=== PATIENT | male | born 1985 | race Caucasian/White ===

== ENCOUNTER 2016-10-05 21:21 | Emergency (ER) | payer BC ==
[2016-10-05 21:36] VITALS: BP 131/89
[2016-10-05] MEDS ORDERED: Ketorolac 30 MG/ML SDV IVPUSH ONE (22:20)
[2016-10-05] MEDS ORDERED: Sodium Chloride 0.9% 10 ML Syringe FLUSH PRN (22:20)
[2016-10-05] MEDS ORDERED: Sodium Chloride 0.9% 1,000 ML IV SCH (22:30)
--- NOTE | 2016-10-05 22:46 | EDM.PDOC ---
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 Noticed some nausea after work this morning. Had a couple of sharp stabs of pain in his lower abdomen starting about 6 PM. While playing softball in the evening noticed some increasing pain in the right lower quadrant while he was out in the field. Pain suddenly intensified while he swung at bat. He was unable to keep playing. He broke out in a sweat with the pain. Pain is aggravated by movement especially turning and twisting, walking, taking a deep breath or laughing.. If he stays still it is a little better. Still has mild nausea. No vomiting No diarrhea No history of similar pain He's had lithotripsy a number of years ago and then he passed fragments and small stones as well. He's always had pain in the back from his kidney stones and it helped immensely different than this pain. Apart from his lithotripsy no abdominal surgery No recent fever or infection No analgesics taken abdominal pain Pain Score (Numeric/FACES): 7 - Related Data Allergies Allergy/AdvReac Type Severity Reaction Status Date / Time No Known Allergies Allergy Verified 10/05/16 21:36 Home Meds: Home Meds NK [No Known Home Meds] 10/05/16 [History] Past Medical History Genitourinary History: Reports: Renal Calculus - Infectious Disease History Infectious Disease History: Reports: Chicken Pox - Past Surgical History Male Surgical History: Reports: Kidney Stone Extraction, Lithotripsy (ES[facility]) Social & Family History - Tobacco Use Smoking Status *Q: Current Every Day Smoker Years of Tobacco use: 15 Packs/Tins Daily: 2 - Caffeine Use Caffeine Use: Reports: Soda - Recreational Drug Use Recreational Drug Use: No ED ROS GENERAL - Review of Systems Review Of Systems: See Below Constitutional: Reports: Diaphoresis (Earlier), Other (Last meal was in the afternoon). Denies: Fever, Chills, Decreased Appetite HEENT: Reports: No Symptoms Respiratory: Reports: No Symptoms Cardiovascular: Reports: No Symptoms Endocrine: Reports: No Symptoms GI/Abdominal: Reports: Abdominal Pain (Right lower quadrant), Nausea. Denies: Diarrhea, Vomiting : Reports: No Symptoms Musculoskeletal: Reports: No Symptoms Skin: Reports: No Symptoms Psychiatric: Reports: No Symptoms Hematologic/Lymphatic: Reports: No Symptoms Immunologic: Reports: No Symptoms ED EXAM, GENERAL - Physical Exam Exam: See Below Exam Limited By: No Limitations General Appearance: Alert, Moderate Distress, Other (Looks uncomfortable, color normal, vital signs normal) Eye Exam: Bilateral Eye: Normal Inspection Ears: Normal External Exam, Normal Canal, Hearing Grossly Normal, Normal TMs Nose: Normal Inspection, Normal Mucosa Throat/Mouth: Normal Inspection, Normal Oropharynx, Normal Voice Head: Atraumatic, Normocephalic Neck: Normal Inspection, Supple Respiratory/Chest: No Respiratory Distress, Lungs Clear, Normal Breath Sounds, No Accessory Muscle Use Cardiovascular: Normal Peripheral Pulses, Regular Rate, Rhythm GI/Abdominal: Normal Bowel Sounds, Soft, No Organomegaly, No Distention, Tender (Rather than the right lower quadrant its more to the right upper quadrant almost below the rib cage at the anterior axillary line). No: Guarding, Rigid, Rebound, Mass (Male) Exam: No Hernia, Normal Inspection Back Exam: Normal Inspection Extremities: Normal Inspection Neurological: Alert, Normal Cognition, No Motor/Sensory Deficits Psychiatric: Normal Affect, Normal Mood Skin Exam: Warm, Dry, Intact, Normal Color, No Rash Lymphatic: No Adenopathy Course - Vital Signs Last Recorded V/S: Last Vital Signs Temp 35.9 C 10/05/16 21:34 Pulse 85 10/05/16 21:34 Resp 16 10/05/16 21:34 BP 131/89 10/05/16 21:34 Pulse Ox 98 10/05/16 21:34 - Orders/Labs/Meds Orders: Active Orders 24 hr Category Date Time Status Peripheral IV Care [RC] . DIRECTED Care 10/05/16 22:20 Active Abdomen Pelvis w Cont [CT] Stat Exams 10/05/16 23:16 Taken Sodium Chloride 0.9% [Normal Saline] 1,000 ml Med 10/05/16 22:30 Active IV ASDIRECTED Sodium Chloride 0.9% [Saline Flush] Med 10/05/16 22:20 Active 10 ml FLUSH ASDIRECTED PRN Peripheral IV Insertion Adult [OM.PC] Routine Oth 10/05/16 22:19 Ordered Medication Orders Sodium Chloride (Normal Saline) 1,000 mls @ 250 mls/hr IV ASDIRECTED ESTRELLITA Last Admin: 10/05/16 22:36 Dose: 250 mls/hr Sodium Chloride (Saline Flush) 10 ml FLUSH ASDIRECTED PRN PRN Reason: Keep Vein Open Last Admin: 10/05/16 22:40 Dose: 10 ml Labs: Laboratory Tests 10/05/16 10/05/16 10/05/16 Range/Units 22:30 22:30 22:55 WBC 8.0 (4.5-11.0) K/uL RBC 5.57 (4.30-5.90) M/uL Hgb 15.8 H (12.0-15.0) g/dL Hct 47.8 (40.0-54.0) % MCV 86 (80-98) fL MCH 28 (27-31) pg MCHC 33 (32-36) % Plt Count 282 (150-400) K/uL Sodium 143 (140-148) mmol/L Potassium 4.2 (3.6-5.2) mmol/L Chloride 106 (100-108) mmol/L Carbon Dioxide 28 (21-32) mmol/L Anion Gap 9.3 (5.0-14.0) mmol/L BUN 7 (7-18) mg/dL Creatinine 1.0 (0.8-1.3) mg/dL Est Cr Clr Drug Dosing 110.51 mL/min Estimated GFR (MDRD) > 60 (>60) Glucose 84 (74-106) mg/dL Calcium 8.6 (8.5-10.1) mg/dL Total Bilirubin 0.8 (0.2-1.0) mg/dL AST 25 (15-37) U/L ALT 29 (12-78) U/L Alkaline Phosphatase 93 (46-116) U/L Total Protein 7.4 (6.4-8.2) g/dL Albumin 3.3 L (3.4-5.0) g/dL Globulin 4.1 H (2.3-3.5) g/dL Albumin/Globulin Ratio 0.8 L (1.2-2.2) Lipase 168 (73-393) U/L Urine Color Yellow Urine Appearance Clear Urine pH 7.0 (4.5-8.0) Ur Specific [place] 1.010 (1.008-1.030) Urine Protein Negative (NEGATIVE) mg/dL Urine Glucose (UA) Normal (NEGATIVE) mg/dL Urine Ketones Negative (NEGATIVE) mg/dL Urine Occult Blood Negative (NEGATIVE) Urine Nitrite Negative (NEGAITVE) Urine Bilirubin Negative (NEGATIVE) Urine Urobilinogen Normal (NORMAL) mg/dL Ur Leukocyte Esterase Negative (NEGATIVE) Urine RBC 0-5 (0-5) Urine WBC 0-5 (0-5) Ur Epithelial Cells Not seen Amorphous Sediment Not seen Urine Bacteria Not seen Urine Mucus Not seen Meds: Medications Generic Name Dose Route Start Last Admin Trade Name Freq PRN Reason Stop Dose Admin Sodium Chloride 1,000 mls @ 250 mls/hr 10/05/16 22:30 10/05/16 22:36 Normal Saline IV 250 mls/hr ASDIRECTED ESTRELLITA Administration Sodium Chloride 10 ml 10/05/16 22:20 10/05/16 22:40 Saline Flush FLUSH 10 ml ASDIRECTED PRN Administration Keep Vein Open Discontinued Medications Generic Name Dose Route Start Last Admin Trade Name Freq PRN Reason Stop Dose Admin Sodium Chloride 75 mls @ 3.4 mls/sec 10/05/16 23:24 10/05/16 23:35 Normal Saline IV 10/05/16 23:25 3.4 mls/sec ASDIRECTED STA Administration Iopamidol 119 ml 10/05/16 23:24 10/05/16 23:34 Isovue-300 (61%) IV 10/05/16 23:25 150 ml . DIRECTED STA Administration Ketorolac Tromethamine 30 mg 10/05/16 22:20 10/05/16 22:36 Toradol IVPUSH 10/05/16 22:21 30 mg ONETIME ONE Administration - Re-Assessments/Exams Free Text/Narrative Re-Assessment/Exam: 10/05/16 22:48 31-year-old male with history of kidney stones presents with new onset right upper quadrant right flank pain associated with some nausea, became suddenly much worse while swinging a bat a softball. Location the pain is more suggestive of renal or gallbladder problem. There is family history of gallstones but not kidney stones POC ultrasound, unable to visualize gallbladder, no evidence of fluid in the abdomen Intravenous saline, Toradol 30 mg IV 10/05/16 22:59 Pain is a little better at this time but still aerated by movement WBC is normal Patient declined further analgesics at this time 10/05/16 23:17 Hepatic profile, lipase, urinalysis are normal CT scan abdomen pelvis with IV contrast ordered 10/06/16 00:09 CT scan negative for acute process that would explain his pain, he does have right kidney stones but no obstruction of bowel were daily and appendix is normal Followup as below Departure - Departure Time of Disposition: 00:10 Disposition: Home, Self-Care 01 Condition: good Clinical Impression: Right sided abdominal pain - Discharge Information Instructions: Abdominal Pain, Adult, [id number] Forms: ED Department Discharge, Return to Work/School Form Additional Instructions: Please get rechecked by your physician or clinic if you're still having pain in a week Take acetaminophen or ibuprofen as needed for pain Get rechecked more promptly if you have repeated vomiting, fever, painful urination, severe pain and, or other new symptoms - My Orders Last 24 Hours: My Active Orders 10/05/16 22:19 Peripheral IV Insertion Adult [OM.PC] Routine 10/05/16 22:20 Peripheral IV Care [RC] . DIRECTED Sodium Chloride 0.9% [Saline Flush] 10 ml FLUSH ASDIRECTED PRN 10/05/16 22:30 Sodium Chloride 0.9% [Normal Saline] 1,000 ml IV ASDIRECTED 10/05/16 23:16 Abdomen Pelvis w Cont [CT] Stat - Assessment/Plan Last 24 Hours: My Active Orders 10/05/16 22:19 Peripheral IV Insertion Adult [OM.PC] Routine 10/05/16 22:20 Peripheral IV Care [RC] . DIRECTED Sodium Chloride 0.9% [Saline Flush] 10 ml FLUSH ASDIRECTED PRN 10/05/16 22:30 Sodium Chloride 0.9% [Normal Saline] 1,000 ml IV ASDIRECTED 10/05/16 23:16 Abdomen Pelvis w Cont [CT] Stat
[2016-10-05] MEDS ORDERED: Iopamidol 612 MG/ML 150 ML Bottle IV STA (23:24)
[2016-10-05] MEDS ORDERED: Sodium Chloride 0.9% 75 ML IV STA (23:24)
== END 2016-10-06 00:24 | disposition home or self-care (01) ==
LOC: JP.ED 21:21
DX: R10.31 Right lower quadrant pain (principal); F17.210 Nicotine dependence, cigarettes, uncomplicated; Z98.890 Other specified postprocedural states; Z87.442 Personal history of urinary calculi
CPT/HCPCS: 36415; 74177; 80053; 81001; 83690; 85027; 96374; 99284; J1885; J7030; J7040; J7050

== ENCOUNTER 2021-01-29 16:57 | Emergency (ER) | payer BC ==
[2021-01-29 19:03] VITALS: BP 136/98; PULSE 86
[2021-01-29] MEDS ORDERED: HYDROmorphone 1 MG/ML Syringe IVPUSH ONE (19:18)
[2021-01-29] MEDS ORDERED: Ondansetron 4 MG/2 ML SDV IVPUSH ONE (19:18)
--- NOTE | 2021-01-29 19:25 | EDM.PDOC ---
ED HPI GENERAL MEDICAL PROBLEM - General Chief Complaint: Gastrointestinal Problem Stated Complaint: DIARRHEA AND STOMACH CRAMPS 3 DAYS Time Seen by Provider: 01/29/21 18:20 Source of Information: Reports: Patient History Limitations: Reports: No Limitations - History of Present Illness INITIAL COMMENTS - FREE TEXT/NARRATIVE: chief complaint - abdominal pain This is a 35 year old male presents to ER with and 2month old infant. He reports has been sick for 3 days. Abdominal pain and cramping, last ate yesterday was a piece of toast, watery diarrhea, fever, chills, nausea and vomiting. no other family members are ill Covid vaccinated x 2 injections Onset: Gradual Onset Date: 01/27/21 Duration: Day(s): (three), Getting Worse Location: Reports: Abdomen Quality: Reports: Sharp, Other (abdominal pain with cramps) Improves with: Reports: None Worsens with: Reports: Eating (unable to eat for the past two days) Context: Reports: Other (acute abdominal pain) Associated Symptoms: Reports: Cough, Fever/Chills, Loss of Appetite, Malaise, Nausea/Vomiting - Related Data Allergies Allergy/AdvReac Type Severity Reaction Status Date / Time No Known Allergies Allergy Verified 01/29/21 18:54 Home Meds: Home Meds NK [No Known Home Meds] 10/05/16 [History] Past Medical History Genitourinary History: Reports: Renal Calculus - Infectious Disease History Infectious Disease History: Reports: Chicken Pox - Past Surgical History Male Surgical History: Reports: Kidney Stone Extraction, Lithotripsy (ES[facility]) Social & Family History - Tobacco Use Years of Tobacco use: 20 Packs/Tins Daily: 1 - Caffeine Use Caffeine Use: Reports: Soda - Living Situation & Occupation Living situation: Reports: (lives with and 4 children) ED ROS GENERAL - Review of Systems Review Of Systems: See Below Constitutional: Reports: Fever, Chills, Fatigue, Decreased Appetite (unable to eat two day- tired to eat toast today- emesis) HEENT: Reports: No Symptoms Respiratory: Reports: Cough Cardiovascular: Reports: No Symptoms Endocrine: Reports: No Symptoms GI/Abdominal: Reports: Abdominal Pain, Diarrhea (multi watery stools), Decreased Appetite, Nausea, Vomiting : Reports: No Symptoms Musculoskeletal: Reports: No Symptoms Skin: Reports: No Symptoms Neurological: Reports: No Symptoms Psychiatric: Reports: No Symptoms Hematologic/Lymphatic: Reports: No Symptoms Immunologic: Reports: No Symptoms ED EXAM, GI/ABD - Physical Exam Exam: See Below Exam Limited By: No Limitations General Appearance: Alert, WD/WN, Moderate Distress (appears ill, pale, unable to lay flat due to pain in right lower abdomen) Eyes: Bilateral: Normal Appearance Ears: Normal External Exam, Normal Canal, Hearing Grossly Normal, Normal TMs Nose: Normal Inspection, Normal Mucosa, No Blood Throat/Mouth: Normal Inspection, Normal Lips, Normal Teeth, Normal Gums, Normal Oropharynx, Normal Voice, No Airway Compromise Head: Atraumatic, Normocephalic Neck: Normal Inspection, Supple, Non-Tender, Full Range of Motion Respiratory/Chest: No Respiratory Distress, Lungs Clear, Normal Breath Sounds, No Accessory Muscle Use, Chest Non-Tender Cardiovascular: Normal Peripheral Pulses, Regular Rate, Rhythm, No Edema, No Gallop, No JVD, No Murmur, No Rub GI/Abdominal Exam: Distended, Guarding (right lower abdomen), Tender, Abnormal Bowel Sounds (hypoactive to absent). No: No Distention (abdomen bloated/distention noted) (Male) Exam: Deferred. No: Inguinal Lymphadenopathy Rectal (Males) Exam: Deferred Back Exam: Normal Inspection, Full Range of Motion, NT Extremities: Normal Inspection, Normal Range of Motion, Non-Tender, Normal Capillary Refill, No Pedal Edema Neurological: Alert, Oriented, CN II-XII Intact, Normal Cognition, Normal Gait, Normal Reflexes, No Motor/Sensory Deficits Psychiatric: Normal Affect, Normal Mood Skin Exam: Warm, Dry, Intact, Normal Color, No Rash Lymphatic: No Adenopathy Course - Vital Signs Last Recorded V/S: Last Vital Signs Temp 97.9 F 01/29/21 18:59 Pulse 86 01/29/21 18:59 Resp 14 01/29/21 18:59 BP 136/98 H 01/29/21 18:59 Pulse Ox 97 01/29/21 18:59 - Orders/Labs/Meds Orders: Active Orders 24 hr Category Date Time Status UA W/MICROSCOPIC [URIN] Urgent Lab 01/29/21 19:18 Ordered Labs: Laboratory Tests 01/29/21 01/29/21 01/29/21 Range/Units 18:54 19:30 19:30 WBC 7.3 (4.5-11.0) K/uL RBC 5.95 H (4.30-5.90) M/uL Hgb 17.0 H (12.0-15.0) g/dL Hct 49.9 (40.0-54.0) % MCV 84 (80-98) fL MCH 29 (27-31) pg MCHC 34 (32-36) % Plt Count 240 (150-400) K/uL Neut % (Auto) 70.5 H (36-66) % Lymph % (Auto) 17.3 L (24-44) % [place] % (Auto) 10.5 H (2-6) % Eos % (Auto) 1.0 L (2-4) % Baso % (Auto) 0.7 (0-1) % Sodium 134 L (140-148) mmol/L Potassium 3.5 L (3.6-5.2) mmol/L Chloride 100 (100-108) mmol/L Carbon Dioxide 26 (21-32) mmol/L Anion Gap 11.5 (5.0-14.0) mmol/L BUN 11 D (7-18) mg/dL Creatinine 1.1 (0.8-1.3) mg/dL Est Cr Clr Drug Dosing 99.83 mL/min Estimated GFR (MDRD) > 60 (>60) Glucose 88 (74-106) mg/dL Calcium 8.7 (8.5-10.1) mg/dL Magnesium 1.9 (1.8-2.4) mg/dL Total Bilirubin 0.6 (0.2-1.0) mg/dL AST 16 (15-37) U/L ALT 19 (12-78) U/L Alkaline Phosphatase 91 (46-116) U/L Total Protein 7.5 (6.4-8.2) g/dL Albumin 3.8 (3.4-5.0) g/dL Globulin 3.7 H (2.3-3.5) g/dL Albumin/Globulin Ratio 1.0 L (1.2-2.2) Amylase (25-115) U/L Lipase (73-393) U/L SARS CoV-2 RNA Rapid MELISSA Negative 01/29/21 Range/Units 19:30 WBC (4.5-11.0) K/uL RBC (4.30-5.90) M/uL Hgb (12.0-15.0) g/dL Hct (40.0-54.0) % MCV (80-98) fL MCH (27-31) pg MCHC (32-36) % Plt Count (150-400) K/uL Neut % (Auto) (36-66) % Lymph % (Auto) (24-44) % [place] % (Auto) (2-6) % Eos % (Auto) (2-4) % Baso % (Auto) (0-1) % Sodium (140-148) mmol/L Potassium (3.6-5.2) mmol/L Chloride (100-108) mmol/L Carbon Dioxide (21-32) mmol/L Anion Gap (5.0-14.0) mmol/L BUN (7-18) mg/dL Creatinine (0.8-1.3) mg/dL Est Cr Clr Drug Dosing mL/min Estimated GFR (MDRD) (>60) Glucose (74-106) mg/dL Calcium (8.5-10.1) mg/dL Magnesium (1.8-2.4) mg/dL Total Bilirubin (0.2-1.0) mg/dL AST (15-37) U/L ALT (12-78) U/L Alkaline Phosphatase (46-116) U/L Total Protein (6.4-8.2) g/dL Albumin (3.4-5.0) g/dL Globulin (2.3-3.5) g/dL Albumin/Globulin Ratio (1.2-2.2) Amylase 43 (25-115) U/L Lipase 117 (73-393) U/L SARS CoV-2 RNA Rapid MELISSA Meds: Medications Discontinued Medications Generic Name Dose Route Start Last Admin Trade Name Freq PRN Reason Stop Dose Admin Hydromorphone HCl 1 mg 01/29/21 19:18 01/29/21 21:05 Hydromorphone 1 Mg/Ml Syringe IVPUSH 01/29/21 19:19 1 mg ONETIME ONE Administration Sodium Chloride 1,000 mls @ 999 mls/hr 01/29/21 19:30 01/29/21 21:05 Normal Saline IV 999 mls/hr ASDIRECTED ESTRELLITA Administration Sodium Chloride 80 mls @ 3 mls/sec 01/29/21 20:00 01/29/21 20:17 Normal Saline IV 3 mls/sec ASDIRECTED ESTRELLITA Administration Iopamidol 127 ml 01/29/21 20:00 01/29/21 20:17 Iopamidol 612 Mg/Ml 150 Ml Bottle IV 126 ml . DIRECTED ESTRELLITA Administration Methylprednisolone Sodium Succinate 125 mg 01/29/21 21:28 01/29/21 21:49 Methylprednisolone Sodium Succinate 125 Mg/2 Ml Sdv IVPUSH 01/29/21 21:29 125 mg ONETIME ONE Administration Ondansetron HCl 4 mg 01/29/21 19:18 01/29/21 21:05 Ondansetron 4 Mg/2 Ml Sdv IVPUSH 01/29/21 19:19 4 mg ONETIME ONE Administration - Re-Assessments/Exams Free Text/Narrative Re-Assessment/Exam: 01/29/21 19:25 discussed with MrSheba and Mrs. Cornelius will need to rule out acute abdomen vs viral -IV fluids, IV medications for pain and nausea -labs CBC, CMP, UA, LIPASE, AMYLASE, URINE WITH MICRO, COVID TEST -Imaging- CT abdomen-pelvis without contrast agree with plan of care 01/29/21 22:34 CT abdomen pelvis show normal appendix,liver, gallbladder. does show inflammation of ileum, no obstruction given a copy of report to Mr. Cornelius -he is feeling better after medications -will discharge to home with plans to follow up in Primary Care for colonscopy, medications for home ordered. -he agrees with plan of care will follow up with Dr. Babatunde rose. Departure - Departure Time of Disposition: 22:00 Disposition: Home, Self-Care 01 Condition: Good Clinical Impression: Abdominal pain - Discharge Information *PRESCRIPTION DRUG MONITORING PROGRAM REVIEWED*: Not Applicable *COPY OF PRESCRIPTION DRUG MONITORING REPORT IN PATIENT [facility]: Not Applicable Instructions: Abdominal Pain, Adult, [id number] Referrals: PCP,None [Primary Care Provider] - Forms: ED Department Discharge, ED Return to Work/School Form Care Plan Goals: Abdominal Pain -CT scan of abdomen-pelvis given copy for home record -advise to have colonoscopy to evaluate for disease -soft diet- avoid spicy foods -medication for inflammation of gut - Medrol dose pack as directed -medication for nausea- zofran 4 mg every 8 hours as needed for nausea -medication for pain - use Tylenol or Motrin. for more intense pain - can use Hydrocodone 5-325mg one every6 to 8 hrs as needed -follow up with Dr. Fine for recheck Return to the ER for any increased pain, fever, chills, nausea, vomiting or not improved Sepsis Event Note (ED) - Evaluation Sepsis Screening Result: No Definite Risk - Focused Exam Vital Signs: Vital Signs Temp Pulse Resp BP Pulse Ox 01/29/21 18:59 97.9 F 86 14 136/98 H 97 - Problem List & Annotations (1) Abdominal pain SNOMED Code(s): 27039986 Code(s): R10.9 - UNSPECIFIED ABDOMINAL PAIN Status: Acute - Problem List Review Problem List Initiated/Reviewed/Updated: Yes - My Orders Last 24 Hours: My Active Orders 01/29/21 19:18 UA W/MICROSCOPIC [URIN] Urgent - Assessment/Plan Last 24 Hours: My Active Orders 01/29/21 19:18 UA W/MICROSCOPIC [URIN] Urgent Plan: Abdominal Pain -CT scan of abdomen-pelvis given copy for home record -advise to have colonoscopy to evaluate for disease -soft diet- avoid spicy foods -medication for inflammation of gut - Medrol dose pack as directed -medication for nausea- zofran 4 mg every 8 hours as needed for nausea -medication for pain - use Tylenol or Motrin. for more intense pain - can use Hydrocodone 5-325mg one every6 to 8 hrs as needed -follow up with Dr. Fine for recheck Return to the ER for any increased pain, fever, chills, nausea, vomiting or not improved
[2021-01-29] MEDS ORDERED: Sodium Chloride 0.9% 1,000 ML IV SCH (19:30)
[2021-01-29] MEDS ORDERED: Iopamidol 612 MG/ML 150 ML Bottle IV SCH (20:00)
[2021-01-29] MEDS ORDERED: Sodium Chloride 0.9% 80 ML IV SCH (20:00)
--- NOTE | 2021-01-29 21:18 | CRLCT ---
For Patients: As a result of the Century Cures Act, medical imaging exams and procedure reports are released immediately into your electronic medical record. You may view this report before your referring provider. If you have questions, please contact your health care provider. INDICATION: Right lower quadrant abdominal pain. COMPARISON: 10/05/2016 TECHNIQUE: CT examination of the abdomen and pelvis was performed with the uneventful intravenous administration of 126 cc of Isovue-300 while 3 mm thick axial sections were obtained from the lung bases through the pubic symphysis. Oral contrast was not administered. Please note that all CT scans at this facility use dose modulation, iterative reconstruction, and/or weight-based dosing when appropriate to reduce radiation dose to as low as reasonably achievable. FINDINGS: In the abdomen, the liver, spleen, pancreas, and adrenals are normal in appearance. Again seen is a nonobstructive 3 millimeter calculus in the lower pole of the right kidney. There is no sign of any additional renal or ureteral calculi. There is no sign of hydronephrosis or hydroureter. The kidneys are otherwise normal in appearance. The gallbladder is normal in appearance. The abdominal aorta is normal in caliber with no sign of dilatation. There is no sign of retroperitoneal mass or adenopathy. The stomach, loops of small bowel, and colon in the abdomen are normal in appearance. In the pelvis, the appendix is normal in appearance with no sign of inflammatory process. There is new moderate mucosal thickening of the distal ileum, without any associated fistula or abscess. There is new mild free fluid in the pelvis which is probably ascites related to the ileal inflammation. The findings raise the possibility of Crohn`s disease. There is no sign of any obstruction or ileus of this small bowel or the rest of the small bowel in the pelvis. The sigmoid colon and rectum are normal in appearance. The prostate is normal in appearance. The urinary bladder is normal in appearance. The previously seen mild thickening of the wall of the urinary bladder is no longer evident. There is no sign of pelvic or inguinal mass or adenopathy. There is no sign of free air or free fluid in the abdomen. There is no sign of free air or extraluminal air in the pelvis. The lung bases are clear. The osseous structures are normal in appearance for the patient`s age. IMPRESSION: CT of the pelvis shows new moderate mucosal thickening of the distal ileum, suspicious for Crohn`s disease. Small amount of free fluid in the pelvis, probably ascites related to the obstruction. Nothing seen that would suggest abscess or perforation. CT of the abdomen shows no change in a nonobstructive 3 millimeter calculus in the lower pole of the right kidney. Please note that all CT scans at this facility use dose modulation, iterative reconstruction, and/or weight-based dosing when appropriate to reduce radiation dose to as low as reasonably achievable. Dictated by Pankaj Chamorro MD @ 01/29/2021 9:16:27 PM (Electronically Signed)
[2021-01-29] MEDS ORDERED: methylPREDNISolone Sodium Succinate 125 MG/2 ML SDV IVPUSH ONE (21:28)
== END 2021-01-29 22:03 | disposition home or self-care (01) ==
LOC: JP.ED 16:57
DX: R10.31 Right lower quadrant pain (principal); Z72.0 Tobacco use; Z20.822 Contact with and (suspected) exposure to COVID-19; Z87.442 Personal history of urinary calculi
CPT/HCPCS: 36415; 74177; 80053; 82150; 83690; 83735; 85025; 87635; 96374; 96375; 99284; J1170; J2405; J2930; J7030; Q9967; U0002

== ENCOUNTER 2021-05-20 11:12 | Emergency (ER) | payer BC ==
--- NOTE | 2021-05-20 11:40 | EDM.PDOC ---
ED HPI GENERAL MEDICAL PROBLEM - General Chief Complaint: Chest Pain Stated Complaint: CHEST PRESSURE AND THEN SWEATS Time Seen by Provider: 05/20/21 11:20 Source of Information: Reports: Patient History Limitations: Reports: No Limitations - History of Present Illness INITIAL COMMENTS - FREE TEXT/NARRATIVE: 35-year-old male, usually healthy, presents with 2 days of intermittent chest pressure followed by diaphoresis. It happens several times a day, activity does not matter in fact he has had several episodes while sleeping at night. He gets a tightness in his chest that lasts a few seconds, this is followed by diaphoresis and then it goes away. Equivocal shortness of breath during the episode but they are so brief that he does not feel like he is struggling to breathe. The tightness only last for 10 to 15 seconds. He otherwise has no symptoms, he is very active and normally does not have problems with activity. He did get his first 2 Covid vaccinations earlier this year, he has not been boosted. No fevers or chills, no abdominal symptoms, no reflux, nausea or vomiting, peripheral edema or rashes. His last episode was 1/2-hour before coming into the hospital, he now feels okay. Onset: Sudden Duration: Day(s): (Symptoms waxing and waning for the past 2 days, symptoms only last 10 to 15 seconds) Location: Reports: Chest Associated Symptoms: Reports: Diaphoresis, Malaise, Shortness of Breath Chest Pain Score (Numeric/FACES): 7 - Related Data Allergies Allergy/AdvReac Type Severity Reaction Status Date / Time No Known Allergies Allergy Verified 05/20/21 11:25 Home Meds: Home Meds NK [No Known Home Meds] 10/05/16 [History] Past Medical History Genitourinary History: Reports: Renal Calculus - Infectious Disease History Infectious Disease History: Reports: Chicken Pox - Past Surgical History Male Surgical History: Reports: Kidney Stone Extraction, Lithotripsy ([facility]) Social & Family History - Tobacco Use Tobacco Use Status *Q: Never Tobacco User - Caffeine Use Caffeine Use: Reports: Soda - Recreational Drug Use Recreational Drug Use: No - Living Situation & Occupation Living situation: Reports: (lives with and 4 children) ED ROS GENERAL - Review of Systems Review Of Systems: See Below Constitutional: Reports: Malaise. Denies: Fever, Chills HEENT: Reports: No Symptoms Respiratory: Reports: Shortness of Breath Cardiovascular: Reports: Other (Central chest pressure, tightness) GI/Abdominal: Reports: No Symptoms Skin: Reports: Diaphoresis Neurological: Denies: Dizziness, Headache, Weakness Psychiatric: Reports: No Symptoms ED EXAM, GENERAL - Physical Exam Exam: See Below Exam Limited By: No Limitations General Appearance: Alert, Anxious Eye Exam: Bilateral Eye: Normal Inspection Head: Atraumatic Neck: Supple, Non-Tender Respiratory/Chest: Lungs Clear Cardiovascular: Regular Rate, Rhythm. No: Bradycardia, Tachycardia, Extra Beats GI/Abdominal: Soft, Non-Tender Back Exam: Normal Inspection Extremities: Normal Inspection, Non-Tender. No: Pedal Edema Neurological: Alert, Oriented Psychiatric: Anxious Skin Exam: Warm, Dry #1 Interpretation EKG Date: 05/20/21 Rhythm: NSR EKG Interpretation Comments: EKG on arrival was completely normal Course - Vital Signs Last Recorded V/S: Last Vital Signs Temp 98.3 F 05/20/21 11:27 Pulse 83 05/20/21 12:19 Resp 19 05/20/21 12:19 BP 153/107 H 05/20/21 12:19 Pulse Ox 95 05/20/21 12:19 - Orders/Labs/Meds Orders: Active Orders 24 hr Category Date Time Status Isolation [COMM] Stat Oth 05/20/21 11:26 Ordered EKG 12 Lead [EK] Routine Ther 05/20/21 11:26 Ordered Labs: Laboratory Tests 05/20/21 05/20/21 05/20/21 Range/Units 11:26 11:26 12:21 WBC 5.7 (4.5-11.0) K/uL RBC 6.00 H (4.30-5.90) M/uL Hgb 17.5 H (12.0-15.0) g/dL Hct 53.1 (40.0-54.0) % MCV 89 (80-98) fL MCH 29 (27-31) pg MCHC 33 (32-36) % Plt Count 208 (150-400) K/uL Neut % (Auto) 53.5 (36-66) % Lymph % (Auto) 21.6 L (24-44) % [place] % (Auto) 21.8 H (2-6) % Eos % (Auto) 1.8 L (2-4) % Baso % (Auto) 0.9 (0-1) % Sodium 139 L (140-148) mmol/L Potassium 4.0 (3.6-5.2) mmol/L Chloride 100 (100-108) mmol/L Carbon Dioxide 29 (21-32) mmol/L Anion Gap 14.0 (5.0-14.0) mmol/L BUN 9 (7-18) mg/dL Creatinine 1.3 (0.8-1.3) mg/dL Est Cr Clr Drug Dosing 79.31 mL/min Estimated GFR (MDRD) > 60 (>60) Glucose 92 (74-106) mg/dL Calcium 9.3 (8.5-10.1) mg/dL Total Bilirubin 0.7 (0.2-1.0) mg/dL AST 25 (15-37) U/L ALT 30 (12-78) U/L Alkaline Phosphatase 97 (46-116) U/L Troponin I High Sens 4.0 (<=60.3) pg/mL Total Protein 7.9 (6.4-8.2) g/dL Albumin 4.4 (3.4-5.0) g/dL Globulin 3.5 (2.3-3.5) g/dL Albumin/Globulin Ratio 1.3 (1.2-2.2) Influenza Type A RNA Negative (NEGATIVE) RSV RNA (INAAT) Negative (NEGATIVE) Influenza Type B RNA Negative (NEGATIVE) SARS-CoV-2 RNA (MELISSA) Positive H (NEGATIVE) - Re-Assessments/Exams Free Text/Narrative Re-Assessment/Exam: 05/20/21 11:39 IV was started, blood was obtained for CBC, CMP, troponin after the EKG was normal. No medical treatment offered as patient is asymptomatic at this time. A Covid 4 Plex viral study was obtained. Patient was kept on cardiac monitoring while being evaluated. 05/20/21 12:38 White count was only slightly elevated, the rest of his labs are normal including troponin. For Plex viral study did come back positive for Covid. This does likely explain his symptoms. He was given a copy of his lab and will quarantine from work for the next 5 to 10 days depending on their protocol. He can return anytime if worsening. Departure - Departure Time of Disposition: 13:02 Disposition: Home, Self-Care 01 Clinical Impression: COVID-19, Nonspecific chest pain - Discharge Information Instructions: COVID-19 Referrals: PCP,None [Primary Care Provider] - Forms: ED Department Discharge Care Plan Goals: Rest, fluids, and increase activity as tolerated. Follow your quarantine protocols per your employer before returning to work. Return to the emergency room if you have increasing shortness of breath or develop other concerns. Sepsis Event Note (ED) - Evaluation Sepsis Screening Result: No Definite Risk - Focused Exam Vital Signs: Vital Signs Temp Pulse Resp BP Pulse Ox 05/20/21 12:19 83 19 153/107 H 95 05/20/21 11:27 98.3 F 89 16 164/119 H 98 - My Orders Last 24 Hours: My Active Orders 05/20/21 11:26 Isolation [COMM] Stat EKG 12 Lead [EK] Routine - Assessment/Plan Last 24 Hours: My Active Orders 05/20/21 11:26 Isolation [COMM] Stat EKG 12 Lead [EK] Routine
[2021-05-20 12:20] VITALS: BP 153/107; PULSE 83
[2021-05-20 12:25] LABS: CORONAVIRUS COVID-19 NAA POSITIVE (NEGATIVE)
== END 2021-05-20 13:02 | disposition home or self-care (01) ==
LOC: JP.ED 11:12
DX: U07.1 COVID-19 (principal); R07.89 Other chest pain
CPT/HCPCS: 0241U; 36415; 80053; 84484; 85025; 93005; 99285

== ENCOUNTER 2024-02-13 08:47 | Emergency (ER) | payer BC ==
[2024-02-13 09:21] VITALS: BP 166/116; PULSE 100
[2024-02-13] MEDS: Ondansetron 4 MG/2 ML SDV IVPUSH ONE (09:25)
[2024-02-13] MEDS: HYDROmorphone 1 MG/ML Syringe IVPUSH ONE (09:26)
[2024-02-13 09:51] LABS: EOSINOPHILS ABSOLUTE AUTO 0.12 K/uL (0.00-0.40); EOSINOPHILS PERCENT AUTO 1.2 % (0.0-5.4); IMMATURE GRAN ABSOLUTE AUTO 0.06 K/uL (0.00-0.23); IMMATURE GRAN PERCENT AUTO 0.6 % (0.0-0.7); LYMPHOCYTES ABSOLUTE AUTO 1.71 K/uL (0.8-3.3); LYMPHOCYTES PERCENT AUTO 16.4 % (11.4-47.7); MEAN CORPUSCULAR HEMOGLOBIN 30.5 pg (31.6-35.5); MEAN CORPUSCULAR HGB CONC 34.8 g/dL (31.6-35.5); MEAN CORPUSCULAR VOLUME 87.5 fL (81.4-99.0); MONOCYTES ABSOLUTE AUTO 0.83 K/uL (0.20-0.90); NEUTROPHILS PERCENT AUTO 72.8 % (40.0-78.1); PLATELET COUNT,PLT 343 K/uL (130-375); RED BLOOD CELL COUNT 6.17 M/uL (4.14-5.76); WHITE BLOOD CELL COUNT,WBC 10.4 K/uL (3.2-11.0)
[2024-02-13 09:54] LABS: HEMOGLOBIN 18.8 g/dL (12.9-16.9)
[2024-02-13 10:00] LABS: A/G RATIO 1.2 (1.2-2.2); ALANINE AMINOTRANSFERASE,ALT 29 U/L (12-78); ALBUMIN 4.7 g/dL (3.4-5.0); ALKALINE PHOSPHATASE 127 U/L (46-116); ANION GAP 14.3 mmol/L (5.0-14.0); ASPARTATE AMNIOTRANSFERASE,AST 27 U/L (15-37); BILIRUBIN TOTAL 1.9 mg/dL (0.2-1.0); BLOOD UREA NITROGEN,BUN 11 mg/dL (7-18); CALCIUM 9.7 mg/dL (8.5-10.1); CARBON DIOXIDE,CO2 26 mmol/L (21-32); CHLORIDE,CL 102 mmol/L (100-108); CREATININE 1.2 mg/dL (0.8-1.3); EST CRCL DRUG DOSING (CG) 86.18 mL/min; ESTIMATED GFR 79 mL/min (>60); GLUCOSE RANDOM 85 mg/dL (74-106); PROTEIN TOTAL,TP 8.7 g/dL (6.4-8.2); SODIUM,NA 142 mmol/L (140-148)
[2024-02-13] MEDS: Cyclobenzaprine 10 MG Tab PO ONE (11:20)
[2024-02-13] MEDS: Diphtheria,Pertussis(Acell),Tetanus Vaccine 0.5 ML Syringe IM ONE (11:21)
[2024-02-13] MEDS: Sodium Chloride 0.9% 80 ML IV SCH (13:54)
[2024-02-13] MEDS: Iopamidol 612 MG/ML 100 ML Bottle IV SCH (13:54)
== END 2024-02-13 14:14 | disposition home or self-care (01) ==
LOC: JP.ED 08:47
DX: M62.838 Other muscle spasm (principal); Z23 Encounter for immunization
CPT/HCPCS: 36415; 70450; 71260; 72125; 72129; 76377; 80053; 85025; 90471; 90715; 96374; 96375; 99284; A9270; J1170; J2405; J3490; Q9967

== ENCOUNTER 2024-06-07 04:05 | Emergency (ER) | payer BC ==
[2024-06-07] MEDS ORDERED: Morphine 4 MG/ML Syringe IM ONE (04:20)
[2024-06-07] MEDS: Ondansetron 4 MG/2 ML SDV IVPUSH ONE (04:29)
[2024-06-07] MEDS: Morphine 4 MG/ML Syringe IVPUSH ONE (04:29)
[2024-06-07 04:32] LABS: BASOPHILS PERCENT AUTO 1.3 % (0.1-1.3); EOSINOPHILS ABSOLUTE AUTO 0.15 K/uL (0.00-0.40); EOSINOPHILS PERCENT AUTO 1.9 % (0.0-5.4); HEMATOCRIT 48.4 % (38.4-49.7); HEMOGLOBIN 16.7 g/dL (12.9-16.9); IMMATURE GRAN ABSOLUTE AUTO 0.03 K/uL (0.00-0.23); IMMATURE GRAN PERCENT AUTO 0.4 % (0.0-0.7); LYMPHOCYTES PERCENT AUTO 17.7 % (11.4-47.7); MEAN CORPUSCULAR HEMOGLOBIN 29.8 pg (31.6-35.5); MEAN CORPUSCULAR HGB CONC 34.5 g/dL (31.6-35.5); MEAN CORPUSCULAR VOLUME 86.3 fL (81.4-99.0); MONOCYTES ABSOLUTE AUTO 0.79 K/uL (0.20-0.90); NEUTROPHILS ABSOLUTE AUTO 5.45 K/uL (1.0-7.6); NEUTROPHILS PERCENT AUTO 68.7 % (40.0-78.1); PLATELET COUNT,PLT 249 K/uL (130-375); RED BLOOD CELL COUNT 5.61 M/uL (4.14-5.76); WHITE BLOOD CELL COUNT,WBC 7.9 K/uL (3.2-11.0)
[2024-06-07] MEDS: Sodium Chloride 0.9% 10 ML Syringe FLUSH PRN (04:32)
[2024-06-07 04:47] LABS: CALCIUM 8.9 mg/dL (8.5-10.1); CREATININE 1.2 mg/dL (0.8-1.3); EST CRCL DRUG DOSING (CG) 88.02 mL/min; POTASSIUM,K 3.6 mmol/L (3.6-5.2)
[2024-06-07 04:48] LABS: ANION GAP 12.6 mmol/L (5.0-14.0)
[2024-06-07 05:47] VITALS: BP 149/110; PULSE 83
[2024-06-07 06:48] LABS: APPEARANCE,URINE SLIGHTLY CLOUDY (CLEAR); BILIRUBIN,URINE NEGATIVE (NEGATIVE); COLOR,URINE YELLOW (YELLOW); GLUCOSE,URINE NEGATIVE (NEGATIVE); KETONES,URINE NEGATIVE (NEGATIVE); LEUKOCYTE ESTERASE,URINE NEGATIVE (NEGATIVE); NITRITE,URINE NEGATIVE (NEGATIVE); OCCULT BLOOD,URINE NEGATIVE (NEGATIVE); PROTEIN,URINE NEGATIVE (NEGATIVE)
[2024-06-07 06:58] LABS: AMORPHOUS SEDIMENT,URINE NOT SEEN; BACTERIA,URINE RARE; EPITHELIAL CELLS,URINE RARE; MUCUS,URINE RARE; RBC,URINE 0-5 (0-5); WBC,URINE NOT SEEN (0-5)
[2024-06-07] MEDS: Acetaminophen/HYDROcodone 325-5 MG Tab PO ONE (07:17)
== END 2024-06-07 07:21 | disposition home or self-care (01) ==
LOC: JP.ED 04:05
DX: N50.812 Left testicular pain (principal)
CPT/HCPCS: 36415; 76870; 80048; 81001; 85025; 93976; 96374; 96375; 99284; A9270; J2270; J2405